=== PATIENT | female | born 1970 | race Hispanic/Latino ===

== ENCOUNTER 2020-02-15 09:35 | Inpatient (IN) | payer OTHER, SELFPAY ==
[2020-02-15] MEDS ORDERED: cefTRIAXone SODIUM 1 GM in SODIUM CHL 0.9% 50ML MIN-BAG+ 50 ML IVPB ONE (09:55)
[2020-02-15] MEDS ORDERED: SODIUM CHLORIDE 0.9% 1000ML 1,000 ML IVS ONE (09:55)
[2020-02-15] MEDS ORDERED: ONDANSETRON INJ 4 MG/2 ML VIAL IV ONE (09:55)
--- NOTE | 2020-02-15 10:02 | ED.PDOC ---
History of Present Illness - General Time Seen by Provider: 02/15/20 09:43 - History of Present Illness Comments: 49 F + pmh presents with family member to ED c/o 4 days of cough with associated pleuritic CP, SOB, headache, body aches, fatigue, congestion, n/v. Pt went to her PCP's office this morning and had a syncopal episode so she was sent to ED here. She has had 2 syncopal episodes today. She works at [employer] and is high risk for COVID19 exposure but denies known exposure. No h/o similar sx's. No alleviating/aggravating factors. Denies acute changes to bowel/urination. Patient has no other complaints at this time. Allergies/Adverse Reactions: Allergies NO KNOWN ALLERGY Allergy (Verified 02/15/20 10:07) Home Medications: Ambulatory Orders Metformin HCl [Glucophage] 1,000 mg PO BID 10/15/18 Ondansetron Odt [Zofran ODT] 8 mg SL TID PRN #15 tab 08/16/19 Tramadol HCl [Ultram] 50 mg PO Q6HR PRN #15 tab 08/16/19 Review of Systems - Review of Systems Constitutional: States: chills, fever EENTM: States: nose congestion. Denies: throat pain Respiratory: States: cough, short of breath Cardiology: States: chest pain, palpitations Gastrointestinal/Abdominal: States: abdominal pain, diarrhea, nausea, vomiting Genitourinary: Denies: dysuria, frequency Musculoskeletal: States: muscle pain. Denies: neck pain Skin: Denies: change in color, rash Neurological: States: headache, other - dizziness Hematologic/Lymphatic: Denies: easy bruising Past Medical History (General) - Patient Medical History Hx Seizures: Yes - as a child Hx Stroke: No Hx Congestive Heart Failure: No Hx Hypertension: Yes - occ Hx Diabetes: Yes Hx Gastroesophageal Reflux: Yes - Vaccination History Hx Tetanus, Diphtheria Vaccination: No Hx Influenza Vaccination: No - Social History Hx Tobacco Use: No Hx Alcohol Use: No Family Medical History - Family History Mother Family History: Unknown Living Status: Unknown Physical Exam - Physical Exam General Appearance: Alert, Comfortable, Other - Appears to feel ill causing pt mild distress, nontoxic, Elevated BMI Eye Exam: bilateral normal, bilateral other - no scleral icterus bilaterally ENT Exam: normal ENT inspection, pharynx normal Neck: supple, normal inspection, other - no JVD Respiratory: lungs clear, normal breath sounds, no respiratory distress, no accessory muscle use Cardiovascular/Chest: normal peripheral pulses, regular rate, rhythm, no edema, no gallop, no JVD, no murmur Gastrointestinal/Abdominal: normal bowel sounds, non tender, soft, no pulsatile mass Extremity: normal inspection, no pedal edema 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 Presents for likely COVID19 pnuemonia with syncope. No clinical concern for CVA or cardiomyopathy at this time (clinically). I will perform imaging, EKG, labs, provide appropriate pharmacotherapy, and continue to monitor/reassess. Dispo will depend on imaging, EKG, lab results and overall course in ED; however, admission is expected due to the 2 episodes of unexplained syncope today. 11:47 AM Recheck patient with family at bedside. No acute distress and vital signs stable. She states she is feeling mildly improved. I have discussed all pertinent findings of lab work EKG imaging and my clinical impression. I explained to patient and family that is impressed interest for admission. They agree with admission at this time. 12:09 PM Consulted with hospitalist Wofl Choi. We discussed patient's case in ED along with all current findings. He accepts patient for admission. 13:46 Multiple rechecks of patient throughout ED encounter with family member at bedside. Vital signs stable, no acute distress, and improving throughout ED course. No acute episodes of decompensation during ED course. - Results/Orders Results/Orders: 02/15/20 09:54 IV Care:Saline Lock per Protoc QSHIFT IV:Start .ONCE 02/15/20 09:55 UA [URINALYSIS] Stat 02/15/20 10:00 EKG STAT 02/15/20 10:06 ABG [Arterial Blood Gas] Stat 02/15/20 11:57 ED Intent to Admit Routine Head [CT] Stat 02/15/20 12:00 LACTIC ACID Urgent Laboratory Results - last 24 hr 02/15/20 02/15/20 02/15/20 09:48 09:48 09:48 WBC 12.2 H RBC 4.39 Hgb 12.6 Hct 37.1 MCV 84.6 MCH 28.7 MCHC 33.9 RDW 13.0 Plt Count 189 MPV 8.5 Absolute Neuts (auto) 11.10 H Absolute Lymphs (auto) 0.60 L Absolute Monos (auto) 0.40 Absolute Eos (auto) 0.00 Absolute Basos (auto) 0.00 Neutrophils % 91.1 H Lymphocytes % 5.2 L Monocytes % 3.5 Eosinophils % 0.0 L Basophils % 0.2 D-Dimer, Quantitative 318.0 Sodium Potassium Chloride Carbon Dioxide Anion Gap BUN Creatinine BUN/Creatinine Ratio Random Glucose Serum Osmolality Lactic Acid Calcium Magnesium Total Bilirubin AST ALT Alkaline Phosphatase Troponin I B-Natriuretic Peptide 109.0 H Serum Total Protein Albumin Globulin Albumin/Globulin Ratio Lipase Serum Ketones 02/15/20 02/15/20 02/15/20 09:48 09:48 09:48 WBC RBC Hgb Hct MCV MCH MCHC RDW Plt Count MPV Absolute Neuts (auto) Absolute Lymphs (auto) Absolute Monos (auto) Absolute Eos (auto) Absolute Basos (auto) Neutrophils % Lymphocytes % Monocytes % Eosinophils % Basophils % D-Dimer, Quantitative Sodium 135 Potassium 3.7 Chloride 97 L Carbon Dioxide 24 Anion Gap 17.7 BUN 16 Creatinine 0.63 BUN/Creatinine Ratio 25.4 H Random Glucose 285 H Serum Osmolality 281.6 Lactic Acid Calcium 8.1 L Magnesium 1.9 Total Bilirubin 1.1 H AST 24 ALT 17 Alkaline Phosphatase 75 Troponin I < 0.02 B-Natriuretic Peptide Serum Total Protein 8.1 Albumin 3.3 Globulin 4.8 H Albumin/Globulin Ratio 0.7 L Lipase 22 Serum Ketones Small 02/15/20 10:10 WBC RBC Hgb Hct MCV MCH MCHC RDW Plt Count MPV Absolute Neuts (auto) Absolute Lymphs (auto) Absolute Monos (auto) Absolute Eos (auto) Absolute Basos (auto) Neutrophils % Lymphocytes % Monocytes % Eosinophils % Basophils % D-Dimer, Quantitative Sodium Potassium Chloride Carbon Dioxide Anion Gap BUN Creatinine BUN/Creatinine Ratio Random Glucose Serum Osmolality Lactic Acid 1.0 Calcium Magnesium Total Bilirubin AST ALT Alkaline Phosphatase Troponin I B-Natriuretic Peptide Serum Total Protein Albumin Globulin Albumin/Globulin Ratio Lipase Serum Ketones EXAM DESCRIPTION: Chest,1 View CLINICAL HISTORY: 49 years Female, syncope, CP, SOB COMPARISON: None. TECHNIQUE: AP portable chest. FINDINGS: Heart size is normal with normal pulmonary vascularity. Subtle infiltrates are seen in the periphery of the mid and lower left lung with questionable infiltrates in the medial lung bases and in the left perihilar region. This may indicate pneumonia. No pulmonary mass or worrisome nodule. No pneumothorax or pleural effusion. Bones are unremarkable. IMPRESSION: Left more than right bilateral pulmonary infiltrates. Electronically signed by: Mariano Hernandez MD 02/15/2020 10:39 AM PENCIL SORTER EXAM DESCRIPTION: Abdoment/Pelvis w/o Contrast CLINICAL HISTORY: 49 years, Female, abd pain COMPARISON: None. TECHNIQUE: CT of the abdomen and pelvis is performed according to our non contrast protocol. FINDINGS: Abnormal lung bases with findings consistent with pneumonia. Heart size is normal. Symmetrical dense lower breast tissue. No density liver consistent with hepatic steatosis. Liver, spleen, and pancreas are otherwise unremarkable. Adrenal glands appear normal. The right kidney is unremarkable. The left kidney is unremarkable. No renal stones or hydronephrosis. Small bowel loops appear normal in caliber with normal wall thickness. There is no lymphadenopathy, inflammation, or free fluid observed. In the pelvis, the appendix is normal. No inflammation around the cecum or terminal ileum or sigmoid colon. No stones in the distal ureters or bladder. Markedly thick-walled bladder could be cystitis or muscular hypertrophy. Correlate with urinalysis. Rectal wall thickness is normal for degree of distention. No free fluid or mass in the pelvis. Uterus appears normal. No ovarian enlargement. No inguinal or lower pelvic adenopathy. Coronal and sagittal reformatted images confirm the findings. IMPRESSION: Bilateral lower lobe consolidative infiltrates consistent with pneumonia. Low density liver consistent with diffuse hepatic steatosis. Thick-walled urinary bladder. Correlate with urinalysis. This exam was performed according to our departmental dose-optimization program, which includes automated exposure control, adjustment of the mA and/or kV according to patient size and/or use of iterative reconstruction technique. Total DLP equals 1497.5 mGycm. Electronically signed by: Mariano Hernandez MD 02/15/2020 10:38 AM PENCIL SORTER EXAM DESCRIPTION: Head CLINICAL HISTORY: syncope COMPARISON: None TECHNIQUE: Noncontrast transaxial CT images of the head are obtained from base to vertex. Images of the posterior fossa are mildly degraded by patient motion artifact. This exam was performed according to our departmental dose-optimization program, which includes automated exposure control, adjustment of the mA and/or kV according to patient size and/or use of iterative reconstruction technique. FINDINGS: The midline structures are not displaced. The sulci are age appropriate. The lateral, third, and fourth ventricles are normal in size, shape, and anatomic positioning. There is no evidence of mass, mass effect, hydrocephalus, or acute intracranial hemorrhage. No abnormal extra axial fluid collections are seen. Normal sanon-white differentiation is seen. The visualized bone windows show no depressed skull fracture or significant abnormality. The visualized paranasal sinuses and mastoid air cells are clear. Moderate vascular calcifications are identified intracranially and extracranially IMPRESSION: 1. No acute abnormality is seen on noncontrast CT of the head. Electronically signed by: Sravan Oropeza MD 02/15/2020 12:34 PM PENCIL SORTER Vital Signs - 24 hr 02/15/20 10:03 Temperature 99.0 F Pulse Rate [ 92 H pulse ox] Respiratory 20 Rate Blood Pressure 135/65 [right arm] O2 Sat by Pulse 95 Oximetry - EKG/XRAY/CT EKG: Sinus, no ST T wave changes Comments: @1058: NSR @84, nl axis, intervals wnl, no CADEN or depressions, no STEMI Departure - Departure Clinical Impression: Pneumonia due to COVID-19 virus, Dehydration, Diabetes mellitus due to underlying condition, uncontrolled, with hyperglycemia, without long-term current use of insulin Syncope Qualifiers: Syncope type: unspecified Qualified Code(s): R55 - Syncope and collapse Time of Disposition: 11:51 Disposition: Admit Patient Condition: Fair Home Medications: Ambulatory Orders Metformin HCl [Glucophage] 1,000 mg PO BID 10/15/18 Ondansetron Odt [Zofran ODT] 8 mg SL TID PRN #15 tab 08/16/19 Tramadol HCl [Ultram] 50 mg PO Q6HR PRN #15 tab 08/16/19 Decision To Admit - Decistion To Admit Decision to Admit Reason: Admit from ER Decision to Admit Date: 02/15/20 Decision to Admit Time: 11:55
--- NOTE | 2020-02-15 10:40 | CT ---
EXAM DESCRIPTION: Abdoment/Pelvis w/o Contrast CLINICAL HISTORY: 49 years, Female, abd pain COMPARISON: None. TECHNIQUE: CT of the abdomen and pelvis is performed according to our non contrast protocol. FINDINGS: Abnormal lung bases with findings consistent with pneumonia. Heart size is normal. Symmetrical dense lower breast tissue. No density liver consistent with hepatic steatosis. Liver, spleen, and pancreas are otherwise unremarkable. Adrenal glands appear normal. The right kidney is unremarkable. The left kidney is unremarkable. No renal stones or hydronephrosis. Small bowel loops appear normal in caliber with normal wall thickness. There is no lymphadenopathy, inflammation, or free fluid observed. In the pelvis, the appendix is normal. No inflammation around the cecum or terminal ileum or sigmoid colon. No stones in the distal ureters or bladder. Markedly thick-walled bladder could be cystitis or muscular hypertrophy. Correlate with urinalysis. Rectal wall thickness is normal for degree of distention. No free fluid or mass in the pelvis. Uterus appears normal. No ovarian enlargement. No inguinal or lower pelvic adenopathy. Coronal and sagittal reformatted images confirm the findings. IMPRESSION: Bilateral lower lobe consolidative infiltrates consistent with pneumonia. Low density liver consistent with diffuse hepatic steatosis. Thick-walled urinary bladder. Correlate with urinalysis. This exam was performed according to our departmental dose-optimization program, which includes automated exposure control, adjustment of the mA and/or kV according to patient size and/or use of iterative reconstruction technique. Total DLP equals 1497.5 mGycm. Electronically signed by: Mariano Hernandez MD 02/15/2020 10:38 AM NUCLE[employer] MEDICINE SUPERVISOR
--- NOTE | 2020-02-15 10:41 | RAD ---
EXAM DESCRIPTION: Chest,1 View CLINICAL HISTORY: 49 years Female, syncope, CP, SOB COMPARISON: None. TECHNIQUE: AP portable chest. FINDINGS: Heart size is normal with normal pulmonary vascularity. Subtle infiltrates are seen in the periphery of the mid and lower left lung with questionable infiltrates in the medial lung bases and in the left perihilar region. This may indicate pneumonia. No pulmonary mass or worrisome nodule. No pneumothorax or pleural effusion. Bones are unremarkable. IMPRESSION: Left more than right bilateral pulmonary infiltrates. Electronically signed by: Mariano Hernandez MD 02/15/2020 10:39 AM [facility]
--- NOTE | 2020-02-15 12:35 | CT ---
EXAM DESCRIPTION: Head CLINICAL HISTORY: syncope COMPARISON: None TECHNIQUE: Noncontrast transaxial CT images of the head are obtained from base to vertex. Images of the posterior fossa are mildly degraded by patient motion artifact. This exam was performed according to our departmental dose-optimization program, which includes automated exposure control, adjustment of the mA and/or kV according to patient size and/or use of iterative reconstruction technique. FINDINGS: The midline structures are not displaced. The sulci are age appropriate. The lateral, third, and fourth ventricles are normal in size, shape, and anatomic positioning. There is no evidence of mass, mass effect, hydrocephalus, or acute intracranial hemorrhage. No abnormal extra axial fluid collections are seen. Normal sanon-white differentiation is seen. The visualized bone windows show no depressed skull fracture or significant abnormality. The visualized paranasal sinuses and mastoid air cells are clear. Moderate vascular calcifications are identified intracranially and extracranially IMPRESSION: 1. No acute abnormality is seen on noncontrast CT of the head. Electronically signed by: Sravan Oropeza MD 02/15/2020 12:34 PM [facility]
--- NOTE | 2020-02-15 12:48 | HP ---
SUPERVISING PHYSICIAN: Ti Lerner M.D. CHIEF COMPLAINT: Cough with shortness of breath and congestion. HISTORY OF PRESENT ILLNESS: Ms. Mckeon is a 49 year-old female, Arabic- speaking only, that was sent to the Emergency Room for evaluation from her primary care physician at [facility] for evaluation after she was seen in the clinic for 4 days for cough with associated pleuritic chest pain, shortness of breath, headaches, body aches, fatigue and congestion. While in the clinic, she actually had a syncopal episode and at the time was referred to the clinic. Apparently she has had 2 separate syncopal episodes today prior to admission. She works at [employer] and has high exposure risk factors for COVID-19, but denies any outright exposures. She denies any significant medical history other than diabetes and hypertension. In the Emergency Room, her vital signs showed she had a low-grade temperature of 99.1, pulse 92, satting 94% on room air, blood pressure 135/65, heart rate 92. Laboratory studies showed white count was showing a leukocytosis at 12,200 with a slight left shift. Coagulation studies showed normal D-dimer. Chemistries showed normal electrolytes. Glucose was 285, magnesium levels were normal. Lactic acid was normal. BNP was only slightly elevated at 109, troponin was normal. Nasal swab for COVID was positive. Abdominal pelvis CT due to some reported abdominal pains and associated nausea showed bilateral lower lobe consolidated infiltrates consistent with pneumonia and with some diffuse hepatic steatosis. There was note of thickened wall of the urinary bladder. Urinalysis was pending at time of admission. She also had a CT of the head with no acute abnormalities seen on the noncontrast CT per radiology interpretation. Chest x-ray showed left more than right greater pulmonary infiltrates. Given her symptomology with syncopal episode witnessed in the clinic and COVID testing positive, and her radiographic studies indicating bilateral pneumonia, the patient is going to be admitted for treatment of COVID pneumonitis and associated pneumonia. She was admitted in stable condition. PAST MEDICAL HISTORY: 1. Hypertension. 2. Diabetes. PAST SURGICAL HISTORY: None listed. HOME MEDICATIONS: 1. Metformin 1,000 mg b.i.d. ALLERGIES: NO KNOWN DRUG ALLERGIES. FAMILY HISTORY: Noncontributory. SOCIAL HISTORY: The patient is , lives in [place]. She works at [employer]. She does not drink alcohol or smoke tobacco or use illicit drugs. REVIEW OF SYSTEMS: CONSTITUTIONAL: Positive for general malaise, fever and chills. HEENT: Denies any ear aches, sore throat, headaches, but has some nasal congestion and a cough. RESPIRATORY: Positive for coughing and shortness of breath with associated pleuritic chest pain. CARDIOVASCULAR: Denies any actual chest pain, but chest pain to deep inspiration and a cough. No actual palpitations but she did have a witnessed syncopal episode. GASTROINTESTINAL: Positive for some reported abdominal pains, diarrhea, nausea and vomiting. GENITOURINARY: Denies any dysuria, hematuria, polyuria. MUSCULOSKELETAL: Generalized muscle pain. Denies any neck pain, back aches. SKIN: Denies any lesions, rashes, moles or unexplained changes. NEUROLOGIC: Dizziness with a reported syncopal episode and positive for headache. Denies any ataxia or seizures. HEMATOLOGIC: Denies any unexplained bleeding, bruising or transfusion reaction. PHYSICAL EXAMINATION: VITAL SIGNS: Temperature 99.3, pulse 88, blood pressure 121/61, respirations 20, satting 92% on room air at rest. GENERAL: The patient looks to be resting comfortably. She does appear to not feel good and ill, but she is not toxic in appearance. HEENT: Tympanic membranes clear bilaterally. Oropharynx is pink, moist without any lesions. NECK: Supple, nontender with full range of motion. No jugular venous distention noted. CHEST: Lungs were clear with no obvious rhonchi, wheezes or rales. HEART: Regular rate and rhythm without any appreciable murmurs, gallops, or rubs. ABDOMEN: Soft, nontender. Positive bowel sounds. EXTREMITIES: Without any clubbing, cyanosis or edema. BACK: Without any CVA or vertebral tenderness. RECTAL: Exam was deferred. NEUROLOGIC: Cranial nerves II-XII are grossly intact. She is oriented times three and alert. Facial features are symmetrical. Extraocular movements are within normal limits. There is no notable nystagmus. SKIN: Warm, pink and dry. EKG showed sinus rhythm. No ST or T wave changes. No evidence of any ST elevation or depression to indicate acute ischemia LABORATORY: White count 12,200, hemoglobin 12.6, hematocrit 37.1, platelet count 189,000. Differential shows a left shift. Coagulation studies showed D- dimer is normal at 318. Chemistries show normal electrolytes with creatinine 0.63. Lactic acid normal at 1.0, magnesium normal at 1.9, calcium 8.1. Liver functions are all within normal limits. Troponin less than 0.02, BNP was 109. She had some small ketones in her blood. Urinalysis was pending. RADIOLOGY: Abdominal CT and pelvis and chest x-ray showed hepatic steatosis and bilateral pneumonia. CT of the head without any acute findings. ASSESSMENT: 1. COVID pneumonitis. 2. Bilateral pneumonia secondary to #1, community acquired. 3. Syncopal episode likely due to some mild dehydration and acute illness. 4. Diabetes mellitus type 2 on oral therapy. PLAN: Ms. Mckeon is going to be admitted for initiation of treatment of COVID pneumonitis and associated pneumonia. She will be on Remdesivir, Rocephin, azithromycin, Ceftriaxone, Align, Lovenox, Guaifenesin. Will follow labs as per protocol. She will also be on telemetry given that she did have apparently a syncopal episode. Will titrate her oxygen to maintain O2 saturations above 94%. She will be on an ADA diet. She will be on insulin sliding scale per protocol. She will be on a PPI and Lovenox. Anticipate her length of stay to be at least 2 to 3 days. Until we can transition to outpatient management will continue to monitor and treat as needed. #[id number] [facility]
[2020-02-15] MEDS ORDERED: SODIUM CHLORIDE 0.9% (FLUSH) 10 ML SYG IV PRN (15:10)
[2020-02-15] MEDS ORDERED: DEXTROSE 50% 25 GM/50 ML SYG IV PRN (15:10)
[2020-02-15] MEDS ORDERED: GLUCAGON INJ 1 MG VIAL SUBCU PRN (15:10)
[2020-02-15] MEDS ORDERED: ONDANSETRON INJ 4 MG/2 ML VIAL IV PRN (15:10)
[2020-02-15] MEDS ORDERED: DEXAMETHASONE INJ 10 MG/ML VIAL IV ONE (15:17)
[2020-02-15] MEDS ORDERED: REMDESIVIR 200 MG in SODIUM CHLORIDE 0.9% 250ML 250 ML IVPB ONE (15:17)
[2020-02-15] MEDS ORDERED: SODIUM CHLORIDE 0.9% 250ML 250 ML ONE ×2 (15:27→15:57)
[2020-02-15] MEDS ORDERED: REMDESIVIR IV 100 MG VIAL ONE ×2 (15:27→15:28)
[2020-02-15] MEDS ORDERED: AZITHROMYCIN IV 500 MG in SODIUM CHLORIDE 0.9% 250ML 250 ML IVPB SCH (15:30)
[2020-02-15] MEDS: IV SET AND CAP CHANGE INJ INJ SCH (15:37)
[2020-02-15] MEDS ORDERED: ACETAMINOPHEN 325 MG TAB ONE (15:47)
[2020-02-15] MEDS: ACETAMINOPHEN 325 MG TAB PO PRN (15:48)
[2020-02-15] MEDS ORDERED: AZITHROMYCIN IV 500 MG VIAL IVPB ONE (15:57)
[2020-02-15] MEDS: INSULIN LISPRO 100 UNITS/ML PEN SUBCU SCH ×2 (16:51→20:26)
[2020-02-15] MEDS: AZITHROMYCIN IV 500 MG in SODIUM CHLORIDE 0.9% 250ML 250 ML IVPB SCH (17:40)
[2020-02-15] MEDS ORDERED: ENOXAPARIN SODIUM 40 MG/0.4 ML SYG SUBCU ONE (19:24)
[2020-02-15] MEDS ORDERED: ALBUTEROL INHALER 64 PUFF/8GM INH PRN (19:41)
[2020-02-15] MEDS: ALBUTEROL INHALER 64 PUFF/8GM INH SCH (20:00)
[2020-02-15] MEDS: guaiFENesin ER TAB 600 MG TAB PO SCH (20:24)
[2020-02-15] MEDS: ENOXAPARIN SODIUM 40 MG/0.4 ML SYG SUBCU SCH (20:25)
[2020-02-16] MEDS ORDERED: PANTOPRAZOLE SODIUM IV 40 MG VIAL ONE (04:53)
[2020-02-16] MEDS ORDERED: PANTOPRAZOLE SODIUM IV 40 MG VIAL IV SCH (06:30)
--- NOTE | 2020-02-16 07:20 | RAD ---
EXAM: Chest 1 View HISTORY: COVID PNA COMPARISON: Chest 1 View AP 02/15/2020 CT abdomen/pelvis 02/15/2020 TECHNIQUE: Chest 1 View AP FINDINGS: Mild decreased inspiration (decreased lung volumes). Trachea midline. Heart size normal. Mild hazy bilateral mid/lower lung field opacities again seen. No significant pleural effusion or pneumothorax. Thoracic spine degenerative disease. IMPRESSION: Mild hazy bilateral mid/lower lung field opacities again seen. Causes include pulmonary edema, subsegmental atelectasis, and Electronically signed by: Brooks Cunha MD 02/16/2020 7:18 AM [employer]
[2020-02-16] MEDS ORDERED: DEXAMETHASONE INJ 10 MG/ML VIAL ONE (07:31)
[2020-02-16] MEDS ORDERED: BIFIDOBACTERIUM INFANTIS 4 MG CAP ONE (07:31)
[2020-02-16] MEDS ORDERED: SODIUM CHL 0.9% 50ML MIN-BAG+ 50 ML IVPB ONE (07:32)
[2020-02-16] MEDS ORDERED: cefTRIAXone SODIUM 1 GM VIAL ONE (07:32)
[2020-02-16] MEDS: INSULIN LISPRO 100 UNITS/ML PEN SUBCU SCH ×4 (07:50→20:38)
[2020-02-16] MEDS: ALBUTEROL INHALER 64 PUFF/8GM INH SCH ×4 (08:44→20:40)
[2020-02-16] MEDS ORDERED: PROMETHAZINE W/CODEINE SYR 6.25 MG/10 MG/5 ML UD PO PRN (09:34)
[2020-02-16] MEDS: REMDESIVIR 100 MG in SODIUM CHLORIDE 0.9% 250ML 250 ML IVPB SCH (09:52)
[2020-02-16] MEDS: guaiFENesin ER TAB 600 MG TAB PO SCH ×2 (09:52→20:38)
[2020-02-16] MEDS: DEXAMETHASONE INJ 10 MG/ML VIAL IV SCH (09:52)
[2020-02-16] MEDS: BIFIDOBACTERIUM INFANTIS 4 MG CAP PO SCH (09:52)
[2020-02-16] MEDS: cefTRIAXone SODIUM 1 GM in SODIUM CHL 0.9% 50ML MIN-BAG+ 50 ML IVPB SCH (10:02)
[2020-02-16] MEDS: AZITHROMYCIN IV 500 MG in SODIUM CHLORIDE 0.9% 250ML 250 ML IVPB SCH (17:45)
--- NOTE | 2020-02-16 18:32 | PN ---
SUPERVISING PHYSICIAN: CARLITO IBANEZ MD DATE: SUBJECTIVE: The patient is sitting up in bed. She is mostly non-Swedish speaking but her nurse communicated that she is feeling much better. She has less shortness of breath. OBJECTIVE: VITAL SIGNS: Temperature 98.3, heart rate 87, blood pressure 132/71, respiratory rate 18, oxygen saturation 93% on 2 liters nasal cannula.' RESPIRATORY: Diminished breath sounds throughout. CARDIAC: Regular rate and rhythm. NEUROLOGICAL: Awake, alert, and oriented x3. LABORATORY: WBC 5,800, hemoglobin 11.9, hematocrit 35.6. She has a left shift on her differential. D-dimer 37, fibrinogen 623. Electrolytes are basically within normal limits. BUN 23, creatinine 0.47, troponin less than 0.02. C- reactive protein is 14.6. RADIOLOGY: Chest x-ray shows mild hazy mid lower lung field opacity causes pulmonary edema, subsegmental atelectasis and pneumonitis. ASSESSMENT: 1. COVID pneumonitis. 2. Bilateral pneumonia secondary to #1, community acquired. 3. Syncopal episode likely due to some mild dehydration and Covid-19. 4. Diabetes mellitus type 2 on oral therapy. PLAN: We will continue present supportive care including the Covid guidelines and medications. I will also check a ketone in the morning as she had a small amount of ketones earlier. I will reevaluate her syncopal episode closer to discharge but most likely was due to her dehydration and Covid-19. Will continue good respiratory therapy. Labs and chest x-ray will be ordered for in the morning. Will monitor and treat as needed. #[id number] [facility]
[2020-02-16] MEDS: ENOXAPARIN SODIUM 40 MG/0.4 ML SYG SUBCU SCH (20:38)
[2020-02-16] MEDS: CHLORPHENIRAMINE W/HYDROCODONE 5 ML UD PO PRN (20:55)
[2020-02-17] MEDS ORDERED: PANTOPRAZOLE SODIUM TAB 40 MG PO ONE (04:43)
[2020-02-17] MEDS: PANTOPRAZOLE SODIUM TAB 40 MG PO SCH (05:52)
--- NOTE | 2020-02-17 06:25 | RAD ---
EXAM: XR Chest, 1 View CLINICAL HISTORY: COVID PNA TECHNIQUE: Frontal view of the chest. COMPARISON: 02/16/2020 FINDINGS: Lungs: There is increased groundglass infiltrate within the left lower lung. Stable mild groundglass infiltrate in the medial right base. Pleural space: No pneumothorax. No pleural effusion. Heart: Normal cardiac size and configuration. Mediastinum: No abnormality noted. Bones/joints: No osseous destruction or sclerosis noted. IMPRESSION: Worsening covid pneumonia. Electronically signed by: Suzanne Beverly MD 02/17/2020 6:24 AM [facility]
[2020-02-17] MEDS: INSULIN LISPRO 100 UNITS/ML PEN SUBCU SCH ×4 (07:40→21:11)
[2020-02-17] MEDS: CHLORPHENIRAMINE W/HYDROCODONE 5 ML UD PO PRN ×2 (09:18→21:51)
[2020-02-17] MEDS: cefTRIAXone SODIUM 1 GM in SODIUM CHL 0.9% 50ML MIN-BAG+ 50 ML IVPB SCH (09:18)
[2020-02-17] MEDS: REMDESIVIR 100 MG in SODIUM CHLORIDE 0.9% 250ML 250 ML IVPB SCH (09:19)
[2020-02-17] MEDS: BIFIDOBACTERIUM INFANTIS 4 MG CAP PO SCH (09:19)
[2020-02-17] MEDS: DEXAMETHASONE INJ 10 MG/ML VIAL IV SCH (09:19)
[2020-02-17] MEDS: guaiFENesin ER TAB 600 MG TAB PO SCH ×2 (09:19→20:16)
[2020-02-17] MEDS: ALBUTEROL INHALER 64 PUFF/8GM INH SCH ×4 (09:26→20:25)
[2020-02-17] MEDS: AZITHROMYCIN IV 500 MG in SODIUM CHLORIDE 0.9% 250ML 250 ML IVPB SCH (18:01)
[2020-02-17] MEDS: ACETAMINOPHEN 325 MG TAB PO PRN (20:15)
[2020-02-17] MEDS: ENOXAPARIN SODIUM 40 MG/0.4 ML SYG SUBCU SCH (20:16)
[2020-02-17] MEDS ORDERED: INSULIN DETEMIR 100 UNITS/ML PEN SUBCU ONE (20:57)
[2020-02-17] MEDS: INSULIN DETEMIR 100 UNITS/ML PEN SUBCU SCH (21:10)
[2020-02-17] MEDS: metFORMIN XR 500 MG TAB.ER.24 PO SCH (21:10)
--- NOTE | 2020-02-17 22:38 | PN ---
SUPERVISING PHYSICIAN: Ti Lerner M.D. DATE: 02/17/20 SUBJECTIVE: The patient is lying in bed. She feels better. No issues were reported by nursing. OBJECTIVE: VITAL SIGNS: Temperature 97.8, heart rate 76, blood pressure 121/65, respiratory rate 20, O2 saturation 91% at 2 liters nasal cannula. RESPIRATORY: Diminished at the bases. CARDIAC: Regular rate and rhythm. NEUROLOGIC: She is awake, alert and oriented. LABORATORY: CBC is basically within normal limits with the exception of she has a left shift on her differential. Fibrinogen 604, D-dimer 501. Electrolytes are basically within normal limits. Blood glucose has been running between 256 and 300. Creatinine kinase is 24, CRP 7.5. Serum ketones are negative. Chest x-ray shows worsening COVID pneumonia. All other labs and films have been reviewed via the EMR. ASSESSMENT: 1. COVID pneumonitis. 2. Bilateral pneumonia secondary to #1, community acquired. 3. Syncopal episode likely due to some mild dehydration and Covid-19. 4. Diabetes mellitus type 2 on oral therapy. PLAN: We will continue present supportive care, including the COVID medications and guidelines and monitor her labs. Continue with aggressive pulmonary hygiene. I am going to add Levemir insulin to her regimen tonight as her blood sugars are quite elevated. Hopefully we can get her blood sugars under better control. She may need to go home on another diabetic medication. We will monitor and treat as indicated. #[id number] MTDD
[2020-02-18] MEDS: PANTOPRAZOLE SODIUM TAB 40 MG PO SCH (06:09)
[2020-02-18] MEDS: ALBUTEROL INHALER 64 PUFF/8GM INH SCH ×4 (08:00→21:18)
--- NOTE | 2020-02-18 08:51 | RAD ---
EXAM: XR Chest, 1 View CLINICAL HISTORY: COVID PNA TECHNIQUE: Frontal view of the chest. COMPARISON: 02/17/2020 FINDINGS: Lungs: Stable bilateral patchy consolidation in the lower lung zones. Pleural space: No pneumothorax. No pleural effusion. Heart: Normal cardiac size and configuration. Mediastinum: No abnormality noted. Bones/joints: No osseous destruction or sclerosis noted. IMPRESSION: Stable abnormalities as above. Electronically signed by: Suzanne Beverly MD 02/18/2020 8:49 AM INFORMATION SYSTEMS SECURITY DEVELOPER
[2020-02-18] MEDS: DEXAMETHASONE INJ 10 MG/ML VIAL IV SCH (09:34)
[2020-02-18] MEDS: cefTRIAXone SODIUM 1 GM in SODIUM CHL 0.9% 50ML MIN-BAG+ 50 ML IVPB SCH (09:34)
[2020-02-18] MEDS: REMDESIVIR 100 MG in SODIUM CHLORIDE 0.9% 250ML 250 ML IVPB SCH (09:34)
[2020-02-18] MEDS: BIFIDOBACTERIUM INFANTIS 4 MG CAP PO SCH (09:34)
[2020-02-18] MEDS: guaiFENesin ER TAB 600 MG TAB PO SCH ×2 (09:34→20:50)
[2020-02-18] MEDS: metFORMIN XR 500 MG TAB.ER.24 PO SCH ×2 (09:37→20:50)
[2020-02-18] MEDS: INSULIN LISPRO 100 UNITS/ML PEN SUBCU SCH ×4 (11:31→20:57)
[2020-02-18] MEDS: IV SET AND CAP CHANGE INJ INJ SCH (17:12)
[2020-02-18] MEDS ORDERED: diphenhydrAMINE HCL 50 MG/ML VIAL IV ONE (17:27)
[2020-02-18] MEDS: AZITHROMYCIN IV 500 MG in SODIUM CHLORIDE 0.9% 250ML 250 ML IVPB SCH (17:37)
[2020-02-18] MEDS ORDERED: metFORMIN XR 500 MG TAB.ER.24 PO ONE (19:30)
[2020-02-18] MEDS: ENOXAPARIN SODIUM 40 MG/0.4 ML SYG SUBCU SCH (20:50)
[2020-02-18] MEDS: INSULIN DETEMIR 100 UNITS/ML PEN SUBCU SCH (20:55)
[2020-02-18] MEDS ORDERED: INSULIN DETEMIR 100 UNITS/ML PEN SUBCU ONE (22:20)
[2020-02-18] MEDS ORDERED: INSULIN DETEMIR 100 UNITS/ML PEN SUBCU SCH (22:21)
[2020-02-19] MEDS: PANTOPRAZOLE SODIUM TAB 40 MG PO SCH (05:33)
[2020-02-19] MEDS: INSULIN LISPRO 100 UNITS/ML PEN SUBCU SCH ×4 (08:02→20:33)
[2020-02-19] MEDS: ALBUTEROL INHALER 64 PUFF/8GM INH SCH ×4 (08:05→20:00)
[2020-02-19] MEDS ORDERED: metFORMIN XR 500 MG TAB.ER.24 PO ONE ×2 (08:09→19:30)
--- NOTE | 2020-02-19 08:47 | PN ---
SUPERVISING PHYSICIAN: Ti Lerner M.D. DATE: 02/18/20 SUBJECTIVE: The patient is sitting up in bed. Nursing has reported that she had no complaints overnight. She is Kazakh-speaking and has to communicate via spanish medical interpreter on the phone or the spanish medical interpreter tablet. She denies chest pain, nausea or vomiting. She continues to need oxygen and gets hypoxic with exertion. OBJECTIVE: VITAL SIGNS: Temperature 98.1, heart rate 69, blood pressure 132/79, respiratory rate 20, O2 saturation 96% on 2 liters nasal cannula. RESPIRATORY: Diminished at the bases but otherwise clear to auscultation. CARDIAC: Regular rate and rhythm. NEUROLOGIC: She is awake, alert and oriented x3. LABORATORY: CBC is within normal limits. Fibrinogen 473, D-dimer 556. Blood glucose have run between 210 and 300. Creatinine kinase 18. C-reactive protein 3.3. Chest x-ray shows stable bilateral patchy consolidation in the lower lung zones. All other labs and films have been reviewed via the EMR. ASSESSMENT: 1. COVID pneumonitis. 2. Bilateral pneumonia secondary to #1, community acquired. 3. Syncopal episode likely due to some mild dehydration and Covid-19. 4. Diabetes mellitus type 2 on oral therapy. PLAN: We will continue present supportive care. I have held on labs for in the morning, hopefully we can discharge tomorrow or the next day if we can get her off the oxygen. We are continuing to wean it off as tolerated and will do an ambulation study in the morning. I have also increased her Levemir to 15 units at night. Hopefully, we can get her blood sugars under control. She will need to followup with her primary care physician in regards to her blood sugars. We will continue to monitor and treat as indicated. #[id number] MTDD
[2020-02-19] MEDS: REMDESIVIR 100 MG in SODIUM CHLORIDE 0.9% 250ML 250 ML IVPB SCH (09:10)
[2020-02-19] MEDS: guaiFENesin ER TAB 600 MG TAB PO SCH ×2 (09:11→20:34)
[2020-02-19] MEDS: BIFIDOBACTERIUM INFANTIS 4 MG CAP PO SCH (09:11)
[2020-02-19] MEDS: metFORMIN XR 500 MG TAB.ER.24 PO SCH ×2 (09:11→20:33)
[2020-02-19] MEDS: DEXAMETHASONE INJ 10 MG/ML VIAL IV SCH (09:11)
[2020-02-19] MEDS: cefTRIAXone SODIUM 1 GM in SODIUM CHL 0.9% 50ML MIN-BAG+ 50 ML IVPB SCH (09:13)
[2020-02-19] MEDS: ENOXAPARIN SODIUM 40 MG/0.4 ML SYG SUBCU SCH (20:34)
[2020-02-20] MEDS: PANTOPRAZOLE SODIUM TAB 40 MG PO SCH (05:49)
[2020-02-20] MEDS: INSULIN LISPRO 100 UNITS/ML PEN SUBCU SCH ×2 (07:57→13:01)
[2020-02-20] MEDS: ALBUTEROL INHALER 64 PUFF/8GM INH SCH ×2 (08:00→11:09)
[2020-02-20] MEDS ORDERED: metFORMIN XR 500 MG TAB.ER.24 PO ONE (08:13)
--- NOTE | 2020-02-20 08:25 | PN ---
SUPERVISING PHYSICIAN: Ti Lerner M.D. DATE: 02/19/20 SUBJECTIVE: The patient is sitting up in bed. She has no complaints. She feels much better, but is still unable to get her oxygen off with any activity. OBJECTIVE: VITAL SIGNS: Temperature 97.1, heart rate 80, blood pressure 109/69, respiratory rate 16, O2 saturation 92% on 2 liters nasal cannula. RESPIRATORY: Essentially clear to auscultation bilaterally. CARDIAC: Regular rate and rhythm. NEUROLOGIC: She is awake, alert and oriented x3. LABORATORY: Blood sugars have run between 210 and 33. Hemoglobin A1c is 12.3. ASSESSMENT: 1. COVID-19 pneumonitis. 2. Diabetes mellitus, type 2, on oral therapy, very poorly controlled with a hemoglobin A1c of 12.3. 3. Bilateral pneumonia secondary to #1, community acquired. 4. Exertional hypoxia with continued increased oxygen needs. 5. Syncopal episode likely due to some mild dehydration and COVID-19 with no further episodes noted of syncope. PLAN: We will continue present supportive care. Hopefully we can wean off her oxygen and discharge on Thursday or Thursday. She will need aggressive diabetic education which at this point has proved difficult due to her [place] speaking only and unavailability of diabetic teaching in the hospital. She is on metformin and will most likely need to be on some insulin at discharge, but will need very close followup and more education than has been available in the hospital. I have ordered labs for in the morning. We will continue to monitor and treat as needed. #[id number] [facility]
[2020-02-20] MEDS ORDERED: POTASSIUM CHLORIDE 20 MEQ TAB PO ONE (09:10)
[2020-02-20] MEDS: metFORMIN XR 500 MG TAB.ER.24 PO SCH (09:33)
[2020-02-20] MEDS: BIFIDOBACTERIUM INFANTIS 4 MG CAP PO SCH (09:34)
[2020-02-20] MEDS: DEXAMETHASONE INJ 10 MG/ML VIAL IV SCH (09:34)
[2020-02-20] MEDS: guaiFENesin ER TAB 600 MG TAB PO SCH (09:34)
[2020-02-20] MEDS: cefTRIAXone SODIUM 1 GM in SODIUM CHL 0.9% 50ML MIN-BAG+ 50 ML IVPB SCH (12:29)
[2020-02-20 13:18] VITALS: BP 105/68; TEMP 97.5; O2SAT 95
--- NOTE | 2020-02-20 15:02 | DS ---
SUPERVISING PHYSICIAN: Dann Ramos MD ADMISSION DIAGNOSIS: 1. COVID pneumonitis. 2. Bilateral pneumonia secondary to #1. 3. Syncopal episode. 4. Diabetes mellitus, type 2. DISCHARGE DIAGNOSIS: 1. COVID pneumonitis. 2. Bilateral pneumonia secondary to #1. 3. Syncopal episode. 4. Diabetes mellitus, type 2. HOSPITAL COURSE: This is a 49-year-old female who came to the Emergency Room due to 4 days of cough with associated pleuritic chest pain, shortness of breath, headaches, body aches, fatigue and congestion. Apparently at the clinic, she also had a syncopal episode at that time. In the ER, she was found to have a low grade fever of 99.1. Blood pressure was stable. She did have elevated glucose with a white count of 12.2. Nasal swab was positive for COVID- 19. Abdomen and pelvis CT showed bilateral lower lobe consolidation consistent with pneumonia and some diffuse hepatic steatosis. She was admitted for COVID- 19 pneumonitis and required oxygen therapy. She never required a large amount of oxygen. I believe 2 liters was the most she was on, however, this was weaned to 1 liter. Once weaned to 1 liter, she could not really get off oxygen without desaturating into the 80s. She did have an ambulatory study today and she desaturated into the 80s without the oxygen. An order has been written for oxygen therapy to be used at home. She will go home with oxygen. She may need to purchase an oximeter to ensure that her oxygen saturations stay greater than 92%. I have written for a 5-day course of cefdinir as well as dexamethasone. I have also written for 15 units of Levemir that she was getting here in the hospital. Her hemoglobin A1c was greater than 12. She utilizes metformin at home, however, this appears to be inadequate at this time. She can followup with the [facility] regarding her diabetes management and needs to stay self-isolated until cleared by her primary care physician. She will be discharged today in stable condition. #[id number] MTDD
== END 2020-02-20 15:40 | disposition home or self-care (01) | DRG 177 ==
LOC: ER 09:35 → MERGE 12:45 → MS 12:45 → OBSVTOIN 12:45
PROVIDERS: ADMIT Nurse Practitioner Family; ATTEND Nurse Practitioner
PROC: XW033E5 Introduction of Remdesivir Anti-infective into Peripheral Vein, Percutaneous Approach, New Technology Group 5 (ICD-10-PCS; principal; 2020-02-15)
DX: U07.1 COVID-19 (principal); J12.82 Pneumonia due to coronavirus disease 2019; E11.65 Type 2 diabetes mellitus with hyperglycemia; E86.0 Dehydration; I10 Essential (primary) hypertension; Z79.84 Long term (current) use of oral hypoglycemic drugs; R55 Syncope and collapse; R09.02 Hypoxemia; Z79.891 Long term (current) use of opiate analgesic; Z79.899 Other long term (current) drug therapy